=== PATIENT | male | born 1990 | race American Indian/Alaskan Native ===

== ENCOUNTER 2019-08-13 17:53 | Emergency (ER) | payer OTHER ==
[2019-08-13 18:40] VITALS: BP 109/72
[2019-08-13] MEDS ORDERED: ALBUTEROL 2.5 MG/3 ML NEBU IH ONE (22:41)
--- NOTE | 2019-08-13 22:53 | Emergency Department Report ---
Minor Respiratory - HPI Chief Complaint: Upper Respiratory Infection Stated Complaint: LFT SIDE RIB PAIN/COUGH Time Seen by Provider: 08/13/19 21:27 Duration: 5 Days Pain Location: Chest Minor Respiratory: Yes Cough Other History: 29-year-old -Citizen Of [place] male presents to the ED complaining of cough and congestion. Patient states that she had coughed so much that he felt something pop in the left side of his back. Patient also complains thirstiness and decreased appetite denies any fever chills no nausea no vomiting or diarrhea.. Patient reports he's had a 15 pound weight loss in the last 2 weeks. ED Review of Systems ROS: Stated complaint: LFT SIDE RIB PAIN/COUGH Other details as noted in HPI Comment: All other systems reviewed and negative Respiratory: cough Musculoskeletal: back pain ED Past Medical Hx - Past Medical History Previous Medical History?: No - Surgical History Past Surgical History?: No - Social History Smoking Status: Current Every Day Smoker Substance Use Type: None - Medications Home Medications: Home Medications Medication Instructions Recorded Confirmed Last Taken Type Albuterol Sulfate [Proventil Hfa] 6.7 gm IH QID PRN #1 [email or web address] 08/13/19 Unknown Rx Minor Respiratory Exam - Exam General: Vital signs noted. No distress. Alert and acting appropriately. HEENT: Yes Moist Mucous Membranes, No Pharyngeal Erythema, No Pharyngeal Exudates, No Rhinorrhea, No Conjuctival Injection, No Frontal Tenderness, No Maxillary Tenderness Lungs: Yes Good Air Exchange, Yes Wheezes (left side wheezing), No Use of Accessory Muscles Neurologic: Alert and oriented, no deficits. Musculoskeletal: Unremarkable. ED Course Vital Signs 08/13/19 18:38 Temperature 98.1 F Pulse Rate 69 Respiratory 12 Rate Blood Pressure 109/72 O2 Sat by Pulse 96 Oximetry ED Medical Decision Making - Medical Decision Making 29-year-old -Citizen Of [place] male presents to the ED complaining of cough and congestion. Patient states that she had coughed so much that he felt something pop in the left side of his back. Patient also complains thirstiness and decreased appetite denies any fever chills no nausea no vomiting or diarrhea.. Patient reports he's had a 15 pound weight loss in the last 2 weeks. He shouldn't had wheezing to the left posterior chest wall. Ordered an albuterol neb. She'll be discharged home with Proventil and Kirby Martinez. Critical care attestation.: If time is entered above; I have spent that time in minutes in the direct care of this critically ill patient, excluding procedure time. ED Disposition Clinical Impression: Cough in adult, Wheezing Disposition: DC- TO HOME OR SELFCARE Is pt being admited?: No Does the pt Need Aspirin: No Condition: Stable Prescriptions: Albuterol Sulfate [Proventil Hfa] 6.7 gm IH QID PRN #1 [email or web address] PRN Reason: Cough Referrals: PRIMARY CARE, [Primary Care Provider] - 3-5 Days
== END 2019-08-14 01:30 | disposition home or self-care (01) ==
LOC: ED 17:53
DX: R05 Cough (principal); R06.2 Wheezing; R09.81 Nasal congestion; F17.200 Nicotine dependence, unspecified, uncomplicated; Z79.899 Other long term (current) drug therapy
CPT/HCPCS: 82962; 94640